=== PATIENT | female | born 1985 | race Caucasian/White ===

== ENCOUNTER 2020-04-14 15:00 | Emergency (ER) | payer OTHER, SELFPAY ==
--- OUTSIDE RECORDS SUMMARY | 2020-04-14 15:27 | XMS REPORT | Continuity of Care Document ---
:1985 Author Organization [facility] t Address [address] [place] [address] Care Team Providers Name Role Phone Unavailable Unavailable Unavailable Payers Payer Name Policy Type Policy Number Effective Date Expiration Date S ource Problems This patient has no known problems. Allergies, Adverse Reactions, Alerts Allergy Allergy Status Severity Reaction(s) Onset Inactive Treating Comm ents Source Name Type Date Date Clinician No Known DA Active [facility] [place] Medications This patient has no known medications. Procedures This patient has no known procedures. Results Test Description Test Time Test Comments Results Result Comments Source RUBELLA SCREEN 2019-09-17 08:23:00 Test Item Value Reference Range Interpretation Comme nts RUBELLA SCREEN (test code = 28.0 IUnit/ml Results >10.0IUnits/ml are considered RUBSC) positive inacco rdance with the CLSI guidelines and based on the WHO International S tandard for Anti-Rubella se rum as anindicator of immune status a nd a breakpoint to detect mostsero positive persons. AG HEPATITIS B [id number] 08:06:00 Test Item Value Reference Range Interpretation Comments AG HEPATITIS B SURFACE (test code NONREACTIVE NONREACTIVE = HBSAG) Comments to Back Panel Padder: [id number] CONSENT FORM SIGNED FOR HIV TESTING? YAB HEPATITIS C [id number] 08:06:00 Test Item Value Reference Range Interpretation Comments AB HEPATITIS C (test code = NONREACTIVE NONREACTIVE HCVAB) SIGNAL TO CUTOFF (test code = 0.14 <0.80 N CUTOFF) Comments to Back Panel Padder: [id number] CONSENT FORM SIGNED FOR HIV TESTING? YAB [id number] 08:06:00 Test Item Value Reference Range Interpretation Comments AB TREPONEMA (test code = TREPAB) NONREACTIVE NONREACTIVE Comments to Back Panel Padder: [id number] CONSENT FORM SIGNED FOR HIV TESTING? YAB HIV 1 08:06:00 Test Item Value Reference Range Interpretation Comments AB HIV 1 2 (test NONREACTIVE NONREACTIVE Done by Venu Lassiter code = [id number]) 4th Gen HIV Ag/Ab Combo Screen Comments to Back Panel Padder: [id number] CONSENT FORM SIGNED FOR HIV TESTING? Y Coronavirus 2019 nCoV [id number] 07:56:00 Test Item Value Reference Range Interpretation Comments Coronavirus 2019 nCoV Negative Negative RESUL TS CALLED TO Bedside (test code = DANAE READ BACK & COVNONPUIBED) CONFIRMED? YES BY [email or web address] 09/06 05/28 0756 This result patel s not rule out co-inf ections with otherpatho gens. * False negative results may occur if a specimen isimproperly co llected, transported or handled. False negativer esults may also occur if amplification i nhibitors arepresent in t he specimen or if inadequate leve ls of virusesare pres ent in the specimen. * As with any molecular t est, if the virus mutat es in thetarget regio n, COVID-19 may no t be detected or may bedetected less predictably.NOELLE T PERFORMED UNDER AN EMERGENCY USE AUTHORIZATION F ROM FDA AG HEPATITIS B [id number] 07:38:00 Test Item Value Reference Range Interpretation Comments AG HEPATITIS B SURFACE (test code NONREACTIVE NONREACTIVE = HBSAG) Comments to Back Panel Padder: [id number] CONSENT FORM SIGNED FOR HIV TESTING? YAB HEPATITIS C [id number] 07:38:00 Test Item Value Reference Range Interpretation Comments AB HEPATITIS C (test code = HCVAB) NONREACTIVE SIGNAL TO CUTOFF (test code = CUTOFF) <0.80 Comments to Back Panel Padder: [id number] CONSENT FORM SIGNED FOR HIV TESTING? YAB [id number] 07:38:00 Test Item Value Reference Range Interpretation Comments AB TREPONEMA (test code = TREPAB) NONREACTIVE NONREACTIVE Comments to Back Panel Padder: [id number] CONSENT FORM SIGNED FOR HIV TESTING? YAB HIV 1 07:38:00 Test Item Value Reference Range Interpretation Comments AB HIV 1 2 (test code = EIY63NN) NONREACTIVE Comments to Back Panel Padder: [id number] CONSENT FORM SIGNED FOR HIV TESTING? YCBC W/AUTO [id number] 06:47:00 Test Item Value Reference Range Interpretation Comments WHITE BLOOD CELL (test code = WBC) 10.6 K/mm3 6.6-12.1 N RED BLOOD CELL (test code = RBC) 3.56 M/mm3 3.45-5.01 N HEMOGLOBIN (test code = HGB) 11.3 g/dL 10.7-13.9 N HEMATOCRIT (test code = HCT) 33.3 % 32.1-42.1 N MEAN CELL VOLUME (test code = MCV) 94 fL 84.1-94.8 N MEAN CELL HGB (test code = MCH) 31.7 pg 27-35 N MEAN CELL HGB CONCETRATION (test 33.9 gm/dL 32.2-34.1 N code = MCHC) RED CELL DISTRIBUTION WIDTH (test 13.1 % 12.4-16.5 N code = RDW) PLATELET COUNT (test code = PLT) 186 K/mm3 133-385 N MEAN PLATELET VOLUME (test code = 11.8 fl 9.1-12.7 N MPV) NEUTROPHIL % (test code = NT%) 75.3 % 56.5-79.4 N LYMPHOCYTE % (test code = LY%) 16.9 % 14.3-34.3 N MONOCYTE % (test code = MO%) 6.1 % 5.1-10.4 N EOSINOPHIL % (test code = EO%) 1.1 % 0.1-3.0 N BASOPHIL % (test code = BA%) 0.1 % 0.1-1.0 N NEUTROPHIL # (test code = NT#) 8.0 K/mm3 LYMPHOCYTE # (test code = LY#) 1.8 K/mm3 MONOCYTE # (test code = MO#) 0.7 K/mm3 EOSINOPHIL # (test code = EO#) 0.12 K/mm3 BASOPHIL # (test code = BA#) 0.0 K/mm3 RBC MORPHOLOGY REQUIRED (test code NORMAL NORMAL = RBCM) PLATELET MORPHOLOGY REQUIRED (test NORMAL NORMAL code = PLTMR)
[2020-04-14 18:06] LABS: Absolute Lymphocytes (CBC) 1.7 K/uL (0.7-4.9); Basophils % 0.3 % (0-1.3); Hematocrit 41.3 % (36.0-45.0); Lymphocytes % 27.7 % (15.3-44.8); MPV 9.7 fL (7.6-11.3); RBC Red Blood Cell Count 4.34 M/uL (3.86-4.86)
[2020-04-14 18:07] LABS: Urine Bacteria NONE SEEN /HPF (<20); Urine Mucus 1+ /HPF (NONE SEEN); Urine RBC <5 /HPF (NONE SEEN)
--- NOTE | 2020-04-14 18:17 | RAD REPORT ---
EXAM DESCRIPTION: Bonifacio Single View04/14/2020 6:11 pm CLINICAL HISTORY: Chest pain COMPARISON: none FINDINGS: The lungs appear clear of acute infiltrate. The heart is normal size IMPRESSION: No acute abnormalities displayed
[2020-04-14 18:26] LABS: ALT/SGPT 26 U/L (12-78); AST/SGOT 15 U/L (15-37); Albumin 4.4 g/dL (3.4-5.0); Alkaline Phosphatase 52 U/L (45-117); BUN Blood Urea Nitrogen 13 mg/dL (7-18); Bicarbonate 27 mmol/L (21-32); Bilirubin Direct < 0.1 mg/dL (0-0.2); Bilirubin Total 0.6 mg/dL (0.2-1.0); Glucose Level 97 mg/dL (74-106); Magnesium 2.2 mg/dL (1.8-2.4); Potassium 3.7 mmol/L (3.5-5.1); Protein, Total 8.5 g/dL (6.4-8.2); Sodium Level 140 mmol/L (136-145); Troponin (Emerg Dept Use Only) < 0.02 ng/mL (0.0-0.045)
[2020-04-14 18:44] LABS: Urine Blood NEGATIVE (NEG); Urine Glucose NEGATIVE (NEG); Urine Protein NEGATIVE (NEG); Urine Specific Gravity 1.015 (1.005-1.030)
--- NOTE | 2020-04-14 20:22 | ER ---
Nurse's Notes [facility] Name: Shelley Saul Age: 34 yrs Sex: Female : 1985 Arrival Date: 04/14/2020 Time: 15:02 Bed 25 Private MD: Diagnosis: Adverse effect of amphetamines-phenteramine Presentation: 04/14 15:04 Chief complaint: EMS states: 1345 at work today, she started getting lightheaded, ca1 palpitations and chest tightness. Attempted to drive to the hospital, she felt she was going to pass out, pulled over and called 911. Initial VS 164/94, HR 105. Last VS 120s/70s, HR 90, 100% RA, NSR on 12L EKG. Coronavirus screen: Client denies travel out of the [place] in the last 14 days. At this time, the client does not indicate any symptoms associated with coronavirus-19. Ebola Screen: Patient negative for fever greater than or equal to 101.5 degrees Fahrenheit, and additional compatible Ebola Virus Disease symptoms Patient denies exposure to infectious person. Patient denies travel to an Ebola-affected area in the 21 days before illness onset. No symptoms or risks identified at this time. Initial Sepsis Screen: Does the patient meet any 2 criteria? No. Patient's initial sepsis screen is negative. Does the patient have a suspected source of infection? No. Patient's initial sepsis screen is negative. Risk Assessment: Do you want to hurt yourself or someone else? Patient reports no desire to harm self or others. Onset of symptoms was April 14, 2020 at 13:45. 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 - Social history:: Smoking status: Patient denies any tobacco usage or history of. Screenin:02 Abuse screen: Denies threats or abuse. Nutritional screening: No deficits noted. jd3 Tuberculosis screening: No symptoms or risk factors identified. Fall Risk Ambulatory Aid- Gait- Normal/Bed Rest/Wheelchair (0 pts) Mental Status- Oriented to own ability (0 pts). Total Hinton Fall Scale indicates No Risk (0-24 pts). Assessment: 18:02 General: Appears in no apparent distress. comfortable, Behavior is calm, cooperative, zb appropriate for age. Pain: Denies pain. Neuro: Level of Consciousness is awake, alert, obeys commands, Oriented to person, place, time, situation. Cardiovascular: Heart tones S1 S2 present Capillary refill < 3 seconds in bilateral fingers Patient's skin is warm and dry. Respiratory: Airway is patent Respiratory effort is even, unlabored, Respiratory pattern is regular, symmetrical. GI: No signs and/or symptoms were reported involving the gastrointestinal system. Abdomen is round non-distended, Bowel sounds present X 4 quads. Patient currently denies diarrhea, nausea, vomiting. : No signs and/or symptoms were reported regarding the genitourinary system. EENT: No signs and/or symptoms were reported regarding the EENT system. Derm: No signs and/or symptoms reported regarding the dermatologic system. Skin is intact, is healthy with good turgor, Skin is dry, Skin is normal. Musculoskeletal: Circulation, motion, and sensation intact. Range of motion: intact in all extremities. 19:00 Reassessment: Patient appears in no apparent distress at this time. Patient and/or zb family updated on plan of care and expected duration. Pain level reassessed. Patient is alert, oriented x 3, equal unlabored respirations, skin warm/dry/pink. Patient states feeling better. 19:50 Reassessment: Patient appears in no apparent distress at this time. Patient and/or zb family updated on plan of care and expected duration. Pain level reassessed. Patient is alert, oriented x 3, equal unlabored respirations, skin warm/dry/pink. Vital Signs: 15:04 BP 130 / 91; Pulse 79; Resp 18 S; Temp 98.2(TE); Pulse Ox 100% on R/A; Weight 88.45 kg ca1 (R); Height 5 ft. 10 in. (177.80 cm) (R); Pain 0/10; 18:03 BP 120 / 83; Pulse 64; Resp 16 S; Pulse Ox 100% on R/A; jd3 19:26 BP 121 / 85 Supine; Pulse 71; Resp 17 S; Pulse Ox 100% on R/A; jd3 19:26 BP 128 / 87 Sitting; Pulse 74; jd3 19:26 BP 120 / 95 Standing; Pulse 88; jd3 19:51 BP 118 / 78; Pulse 66; Resp 16; Pulse Ox 100% on R/A; zb 15:04 Body Mass Index 27.98 (88.45 kg, 177.80 cm) ca1 ED Course: 15:02 Patient arrived in ED. as 15:12 Triage completed. ca1 15:13 Arm band placed on right wrist. ca1 16:39 Karla Mesa FNP-C is PHCP. snw 16:39 Ferny Adair MD is Attending Physician. snw 17:33 Lay Gonzalez RN is Primary Nurse. zb 18:02 Patient has correct armband on for positive identification. Placed in gown. Bed in low jd3 position. Call light in reach. Side rails up X 1. radiation monitor on. Pulse ox on. NIBP on. 18:02 Inserted saline lock: 20 gauge in left antecubital area, using aseptic technique. Blood jd3 collected. placed by Trinity ORELLANA. 20:49 No provider procedures requiring assistance completed. IV discontinued, intact, jd3 bleeding controlled, No redness/swelling at site. Pressure dressing applied. Administered Medications: No medications were administered Outcome: 20:21 Discharge ordered by . snw 20:49 Discharged to home ambulatory. jd3 20:49 Condition: stable 20:49 Discharge instructions given to patient, Instructed on discharge instructions, follow up and referral plans. Demonstrated understanding of instructions, follow-up care. 20:50 Patient left the ED. zb Addendum: 04/16/2020 16:35 Addendum: COVID-19 Result: Negative result given to RN to notify pt. Left voice mail. h b 04/18/2020 10:40 Addendum: COVID-19 Result: Negative result given to RN to notify pt. Attempted to i w contact pt regarding negative COVID-19 swab results. Left voice mail. Signatures: Karla Mesa FNP-C FNP-Marie Landeros Irene, RN RN Ankita Steward, RN RN Angel Ghosh, RN RN jd3 Cristela Cox, RN RN Lay Dumont, RN RN zb
--- NOTE | 2020-04-14 20:22 | EDPHYS ---
Physician Documentation [facility] Name: Shelley Saul Age: 34 yrs Sex: Female : 1985 Arrival Date: 04/14/2020 Time: 15:02 Bed 25 Private MD: ED Physician Ferny Adair HPI: 04/14 21:50 This 34 yrs old Female presents to ER via EMS with complaints of Chest Pain. snw 21:50 Onset: The symptoms/episode began/occurred acutely, and became persistent. Associated snw signs and symptoms: Pertinent positives: palpitations, near syncope, not drinking many fluids. Modifying factors: The patient symptoms are alleviated by nothing. The patient has not experienced similar symptoms in the past. It is unknown whether or not the patient has recently seen a physician. pt has been taking phenteramine. 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 - Social history:: Smoking status: Patient denies any tobacco usage or history of. ROS: 21:49 Eyes: Negative for injury, pain, redness, and discharge, ENT: Negative for injury, snw pain, and discharge, Neck: Negative for injury, pain, and swelling, Cardiovascular: Negative for chest pain, palpitations, and edema, Respiratory: Negative for shortness of breath, cough, wheezing, and pleuritic chest pain, Abdomen/GI: Negative for abdominal pain, nausea, vomiting, diarrhea, and constipation, Back: Negative for injury and pain, : Negative for injury, bleeding, discharge, and swelling, MS/Extremity: Negative for injury and deformity, Skin: Negative for injury, rash, and discoloration. 21:49 Constitutional: Positive for fatigue, malaise, poor PO intake. 21:49 Cardiovascular: Positive for chest pain, palpitations. 21:49 Neuro: Positive for dizziness, near syncope. Exam: 19:03 Constitutional: This is a well developed, well nourished patient who is awake, alert, snw and in no acute distress. Head/Face: Normocephalic, atraumatic. Eyes: Pupils equal round and reactive to light, extra-ocular motions intact. Lids and lashes normal. Conjunctiva and sclera are non-icteric and not injected. Cornea within normal limits. Periorbital areas with no swelling, redness, or edema. ENT: Nares patent. No nasal discharge, no septal abnormalities noted. Tympanic membranes are normal and external auditory canals are clear. Oropharynx with no redness, swelling, or masses, exudates, or evidence of obstruction, uvula midline. Mucous membranes moist. Neck: Trachea midline, no thyromegaly or masses palpated, and no cervical lymphadenopathy. Supple, full range of motion without nuchal rigidity, or vertebral point tenderness. No Meningismus. Chest/axilla: Normal chest wall appearance and motion. Nontender with no deformity. No lesions are appreciated. Cardiovascular: Regular rate and rhythm with a normal S1 and S2. No gallops, murmurs, or rubs. Normal PMI, no JVD. No pulse deficits. Respiratory: Lungs have equal breath sounds bilaterally, clear to auscultation and percussion. No rales, rhonchi or wheezes noted. No increased work of breathing, no retractions or nasal flaring. Abdomen/GI: Soft, non-tender, with normal bowel sounds. No distension or tympany. No guarding or rebound. No evidence of tenderness throughout. Back: No spinal tenderness. No costovertebral tenderness. Full range of motion. Skin: Warm, dry with normal turgor. Normal color with no rashes, no lesions, and no evidence of cellulitis. MS/ Extremity: Pulses equal, no cyanosis. Neurovascular intact. Full, normal range of motion. Neuro: Awake and alert, GCS 15, oriented to person, place, time, and situation. Cranial nerves II-XII grossly intact. Motor strength 5/5 in all extremities. Sensory grossly intact. Cerebellar exam normal. Normal gait. Psych: Awake, alert, with orientation to person, place and time. Behavior, mood, and affect are within normal limits. Vital Signs: 15:04 BP 130 / 91; Pulse 79; Resp 18 S; Temp 98.2(TE); Pulse Ox 100% on R/A; Weight 88.45 kg ca1 (R); Height 5 ft. 10 in. (177.80 cm) (R); Pain 0/10; 18:03 BP 120 / 83; Pulse 64; Resp 16 S; Pulse Ox 100% on R/A; jd3 19:26 BP 121 / 85 Supine; Pulse 71; Resp 17 S; Pulse Ox 100% on R/A; jd3 19:26 BP 128 / 87 Sitting; Pulse 74; jd3 19:26 BP 120 / 95 Standing; Pulse 88; jd3 19:51 BP 118 / 78; Pulse 66; Resp 16; Pulse Ox 100% on R/A; zb 15:04 Body Mass Index 27.98 (88.45 kg, 177.80 cm) ca1 MDM: 17:06 Patient medically screened. snw 19:00 Counseling: I had a detailed discussion with the patient and/or guardian regarding: the snw historical points, exam findings, and any diagnostic results supporting the discharge/admit diagnosis, the need for outpatient follow up, for definitive care, to return to the emergency department if symptoms worsen or persist or if there are any questions or concerns that arise at home. Response to treatment: the patient's symptoms have markedly improved after treatment. Special discussion: Based on the patient's history, exam, and Dx evaluation, there is no indication for emergent intervention or inpatient Tx. It is understood by the patient/guardian that if the Sx's persist or worsen they need to return immediately for re-evaluation. Based on the history and exam findings, there is no indication for further emergent testing or inpatient evaluation. 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 I discussed with the patient/guardian the need to see the primary care provider for further evaluation of the symptoms. ED course: encouraged to dc phenteramine and increase fluid intake. 21:46 Data reviewed: vital signs, nurses notes. Data interpreted: Pulse oximetry: on room air snw is 100 %. Interpretation: normal. 04/14 17:20 Order name: Basic Metabolic Panel snw 04/14 17:20 Order name: CBC with Diff snw 04/14 17:20 Order name: LFT's snw 04/14 17:20 Order name: Magnesium snw 04/14 17:20 Order name: Troponin (emerg Dept Use Only) snw 04/14 17:20 Order name: Test, Serum snw 04/14 17:20 Order name: COVID-19 snw 04/14 17:50 Order name: Urine Microscopic Only jd3 04/14 18:08 Order name: Urine Microscopic Only; Complete Time: 18:37 EDMS 04/14 18:12 Order name: CBC with Automated Diff; Complete Time: 18:37 EDMS 04/14 18:26 Order name: Basic Metabolic Panel; Complete Time: 18:37 EDMS 04/14 18:26 Order name: Liver (Hepatic) Function; Complete Time: 18:37 EDMS 04/14 18:27 Order name: Troponin (Emerg Dept Use Only); Complete Time: 18:37 EDMS 04/14 18:27 Order name: Magnesium; Complete Time: 18:37 EDMS 04/14 17:20 Order name: XRAY Chest (1 view) snw 04/14 17:20 Order name: EKG; Complete Time: 17:25 snw 04/14 17:20 Order name: Cardiac monitoring; Complete Time: 17:33 snw 04/14 17:20 Order name: EKG - Nurse/Tech; Complete Time: 17:33 snw 04/14 17:20 Order name: IV Saline Lock; Complete Time: 18:02 snw 04/14 17:20 Order name: Labs collected and sent; Complete Time: 18:02 snw 04/14 17:20 Order name: O2 Per Protocol; Complete Time: 17:30 snw 04/14 17:20 Order name: O2 Sat Monitoring; Complete Time: 17:30 snw 04/14 18:22 Order name: RAD; Complete Time: 18:37 EDMS 04/14 18:27 Order name: Urine Dipstick--Ancillary (enter results) bd 04/14 18:27 Order name: Urine --Ancillary (enter results) bd 04/14 18:43 Order name: Test Serum, Qualitat; Complete Time: 18:48 EDMS 04/14 18:44 Order name: Urine --Ancillary; Complete Time: 18:48 EDMS 04/14 18:44 Order name: Urine Dipstick-Ancillary; Complete Time: 18:48 EDMS 04/14 18:48 Order name: Orthostatics; Complete Time: 19:15 snw Administered Medications: No medications were administered Disposition: 04/14/20 20:21 Discharged to Home. Impression: Adverse effect of amphetamines - phenteramine. - Condition is Stable. - Discharge Instructions: Palpitations, Rehydration, Adult. - Work release form, Medication Reconciliation Form, Thank You Letter, Antibiotic Education, Prescription Opioid Use form. - Follow up: Emergency Department; When: As needed; Reason: Worsening of condition. Follow up: Private Physician; When: 2 - 3 days; Reason: Recheck today's complaints, Continuance of care, Re-evaluation by your physician. Addendum: 04/16/2020 19:44 Co-signature as Attending Physician, Ferny Adair MD. r n Signatures: Dispatcher [employer] EDMS Karla Mesa, CONSTRUCTION IRONWORKER HELPER-C CONSTRUCTION IRONWORKER HELPER-Csnw Ferny Adair MD MD rn Brooke, Cristela, RN RN Lay Dumont RN RN jackson Corrections: (The following items were deleted from the chart) 04/14 20:50 20:21 04/14/2020 20:21 Discharged to Home. Impression: Adverse effect of amphetamines - zb phenteramine. Condition is Stable. Forms are Medication Reconciliation Form, Thank You Letter, Antibiotic Education, Prescription Opioid Use. Follow up: Emergency Department; When: As needed; Reason: Worsening of condition. Follow up: Private Physician; When: 2 - 3 days; Reason: Recheck today's complaints, Continuance of care, Re-evaluation by your physician. snw 21:50 19:04 Constitutional: Positive for snw snw
--- NOTE | 2020-04-15 11:56 | EKG ---
Test Date: 2020-04-14 Test Time: 17:37:20 Color Maker Formulator: CITLALLI MEASUREMENT RESULTS: Intervals: Rate: 70 IN: 146 QRSD: 90 QT: 408 QTc: 440 [place]: P: 70 IN: 146 QRS: 78 T: 58 INTERPRETIVE STATEMENTS: Normal sinus rhythm Nonspecific T wave abnormality Abnormal ECG No previous ECG available for comparison Electronically Signed On 04-15-20 11:52:25 AUTOMOTIVE TEACHER by Bennett Quach
[2020-04-18 02:13] VITALS: TEMP 98.2; O2SAT 100
[2020-04-18 02:18] VITALS: BP 118/78
== END 2020-04-14 20:50 | disposition home or self-care (01) ==
LOC: ER 15:00
DX: R07.9 Chest pain, unspecified (principal); T50.5X5A Adverse effect of appetite depressants, initial encounter; Z20.828 Contact with and (suspected) exposure to other viral communicable diseases
CPT/HCPCS: 36415; 71045; 80048; 80076; 81003; 81015; 81025; 83735; 84484; 84703; 85025; 93005; 99284; U0002

== ENCOUNTER 2021-08-02 07:33 | Emergency (ER) | payer BC ==
--- OUTSIDE RECORDS SUMMARY | 2021-08-02 07:39 | XMS REPORT | Continuity of Care Document ---
:1985 Author Organization [facility] t Address [address] [place] [address] Care Team Providers Name Role Phone Emory Attending Clinician Unavailable Emory Admitting Clinician Unavailable Payers Payer Name Policy Type Policy Number Effective Date Expiration Date S ource Problems This patient has no known problems. Allergies, Adverse Reactions, Alerts Allergy Allergy Status Severity Reaction(s) Onset Inactive Treating Comm ents Source Name Type Date Date Clinician No Known DA Active U 2020-0 [facility] Allergie 09-13 [facility] [address] [place] [address] No Known DA Active U 2019-0 [facility] Allergie 09-13 [facility]'s s 00:00: [address] Medications This patient has no known medications. Procedures Procedure Date / Time Performed Performing Clinician [facility] e [id number] 2019-09-17 00:00:00 [facility] [id number] 2019-09-17 00:00:00 [facility] [id number] 2019-09-17 00:00:00 [facility] Encounters Start End Encounter Admission Attending Care Care Encounter Source Date/Time Date/Time Type Type Clinicians Facility Department ID 2021-02-19 Outpatient [facility] [id number] [facility] 18:54:50 [id number] [facility] 2019-09-17 Inpatient EM ACL Cat [id number] [facility] 04:31:00 Juan [id number] [facility] 2019-09-14 Inpatient CAL Cat LEROY [id number] [facility] 19:29:00 Juan [id number] [facility] Results Test Description Test Time Test Comments [...] a breakpoint to detect mostsero positive persons. AB [id number] 08:06:00 Test Item Value Reference Range Interpretation Comments AB TREPONEMA (test code = TREPAB) NONREACTIVE NONREACTIVE Comments to Attending Physician: [id number] CONSENT FORM SIGNED FOR HIV TESTING? YAB HIV 1 08:06:00 Test Item Value Reference Range Interpretation Comments AB HIV 1 2 (test NONREACTIVE NONREACTIVE Done by Venu Lassiter code = [id number]) 4th Gen HIV Ag/Ab Combo Screen Comments to Attending Physician: [id number] CONSENT FORM SIGNED FOR HIV TESTING? YAG HEPATITIS B [id number] 08:06:00 Test Item Value Reference Range Interpretation Comments AG HEPATITIS B SURFACE (test code NONREACTIVE NONREACTIVE = HBSAG) Comments to Attending Physician: [id number] CONSENT FORM SIGNED FOR HIV TESTING? YAB HEPATITIS C [id number] 08:06:00 Test Item Value Reference Range Interpretation Comments AB HEPATITIS C (test code = NONREACTIVE NONREACTIVE HCVAB) SIGNAL TO CUTOFF (test code = 0.14 <0.80 N CUTOFF) Comments to Attending Physician: [id number] CONSENT FORM SIGNED FOR HIV TESTING? Y Coronavirus 2019 nCoV [id number] 07:56:00 Test Item Value Reference Range Interpretation Comments Coronavirus 2019 nCoV Negative Negative RESUL TS CALLED TO Bedside (test code = DANAE READ BACK & COVNONPUIBED) CONFIRMED? YES BY [email or web address] 09/06 05/28 [id number] This result patel s not rule out [...] AUTHORIZATION F ROM FDA AG HEPATITIS B [id number] 07:38:00 Test Item Value Reference Range Interpretation Comments AG HEPATITIS B SURFACE (test code NONREACTIVE NONREACTIVE = HBSAG) Comments to Attending Physician: [id number] CONSENT FORM SIGNED FOR HIV TESTING? YAB HEPATITIS C [id number] 07:38:00 Test Item Value Reference Range Interpretation Comments AB HEPATITIS C (test code = HCVAB) NONREACTIVE SIGNAL TO CUTOFF (test code = CUTOFF) <0.80 Comments to Attending Physician: [id number] CONSENT FORM SIGNED FOR HIV TESTING? YAB [id number] 07:38:00 Test Item Value Reference Range Interpretation Comments AB TREPONEMA (test code = TREPAB) NONREACTIVE NONREACTIVE Comments to Attending Physician: [id number] CONSENT FORM SIGNED FOR HIV TESTING? YAB HIV 1 07:38:00 Test Item Value Reference Range Interpretation Comments AB HIV 1 2 (test code = CRF05DT) NONREACTIVE Comments to Attending Physician: [id number] CONSENT FORM SIGNED FOR HIV TESTING? YCBC W/AUTO [id number] 06:47:00 Test Item Value Reference Range Interpretation [...]
[2021-08-02 08:00] LABS: Urine Blood 2+ (Negative); Urine Glucose Negative (Negative); Urine Protein 2+ (Negative); Urine Specific Gravity 1.025 (1.005-1.030)
[2021-08-02 08:07] LABS: Urine Specific Gravity/Preg 1.025 (1.005-1.030)
[2021-08-02] MEDS ORDERED: KETOROLAC 30 MG/ML INJ ONE (08:07)
[2021-08-02] MEDS ORDERED: ONDANSETRON 4 MG/2 ML VIAL ONE (08:07)
[2021-08-02] MEDS ORDERED: CEFTRIAXONE 1000 MG/VIAL ONE (08:07)
[2021-08-02] MEDS ORDERED: NA CHLORIDE 0.9% 50 ML ONE (08:07)
[2021-08-02] MEDS ORDERED: NA CHLORIDE 0.9% 1,000 ML ONE (08:07)
--- NOTE | 2021-08-02 08:21 | RAD REPORT ---
[facility] Protocol - 08/02/2021 8:05 am CLINICAL HISTORY: FLANK PAIN COMPARISON: No comparisons TECHNIQUE: CT of the abdomen and pelvis was performed. All CT scans are performed using dose optimization technique as appropriate and may include automated exposure control or mA/KV adjustment according to patient size. FINDINGS: Lower chest: Small focus of micro nodularity in the right lower lobe of doubtful acute cli nical significance. Liver: No acute abnormality or suspicious lesions. Biliary: No biliary ductal dilatation. Stomach: No significant focal abnormality. Duodenum: No significant focal abnormality. Pancreas: No significant abnormality. Spleen: No significant abnormality. Adrenal: No suspicious lesions. Kidney/ureter: No hydronephrosis. No renal calculi. Retroperitoneum: No retroperitoneal adenopathy. Vascular: No aneurysm. Bowel: No significant focal abnormality. Normal appendix. Peritoneum: No ascites or free air. Bladder: Grossly unremarkable. Reproductive: No adnexal masses. Bones: No acute fracture. Probable bone islands in the right iliac bone. Other: n/a IMPRESSION: No acute intra-abdominal or pelvic finding. No urinary tract calculi. Normal appendix.
[2021-08-02 08:33] LABS: Absolute Lymphocytes (CBC) 1.5 K/uL (0.7-4.9); Hematocrit 42.2 % (36.0-45.0); Lymphocytes % 21.8 % (15.3-44.8); MPV 8.8 fL (7.6-11.3); RBC Red Blood Cell Count 4.32 M/uL (3.86-4.86)
[2021-08-02 08:37] LABS: ALT/SGPT 34 U/L (12-78); AST/SGOT 33 U/L (15-37); Albumin 3.7 g/dL (3.4-5.0); Alkaline Phosphatase 58 U/L (45-117); BUN Blood Urea Nitrogen 10 mg/dL (7-18); Bicarbonate 29 mmol/L (21-32); Bilirubin Total 0.3 mg/dL (0.2-1.0); Glucose Level 110 mg/dL (74-106); Potassium 4.2 mmol/L (3.5-5.1); Protein, Total 7.5 g/dL (6.4-8.2); Sodium Level 140 mmol/L (136-145)
[2021-08-02] MEDS ORDERED: CIPROFLOXACIN HCL 500 MG TAB ONE (08:51)
--- NOTE | 2021-08-02 09:09 | EDPHYS ---
Physician Documentation [facility] Name: Shelley Saul Age: 35 yrs Sex: Female : 1985 Arrival Date: 08/02/2021 Time: 07:38 Bed 19 Private MD: ED Physician J Luis Ohara HPI: 08/02 08:17 This 35 yrs old Female presents to ER via Ambulatory with complaints of Back melba Pain, Urinary Problem. 08:17 The patient presents with pain that is acute. The symptoms are located in the low back, melba left mid back and right mid back. Onset: The symptoms/episode began/occurred 3 day(s) ago. The pain does not radiate. Associated signs and symptoms: Pertinent positives: abdominal pain, dysuria, fever. The problem was sustained from unknown cause. Severity of symptoms: At their worst the symptoms were mild, in the emergency department the symptoms are unchanged. The patient has not experienced similar symptoms in the past. [employer]: 07:54 LMP 07/07/2021 iw Historical: - Allergies: 07:52 No Known Allergies; iw - Home Meds: 07:52 None [Active]; iw - PMHx: 07:52 None; iw - PSHx: 07:52 None; iw - Social history:: Smoking status: Patient/guardian denies using tobacco, the patient reports quitting approximately 3 years ago. - Family history:: not pertinent. ROS: 08:17 Constitutional: Negative for fever, chills, and weight loss, Eyes: Negative for injury, melba pain, redness, and discharge, ENT: Negative for injury, pain, and discharge, Neck: Negative for injury, pain, and swelling, Cardiovascular: Negative for chest pain, palpitations, and edema, Respiratory: Negative for shortness of breath, cough, wheezing, and pleuritic chest pain, MS/Extremity: Negative for injury and deformity, Skin: Negative for injury, rash, and discoloration, Neuro: Negative for headache, weakness, numbness, tingling, and seizure, Psych: Negative for depression, anxiety, suicide ideation, homicidal ideation, and hallucinations, Allergy/Immunology: Negative for hives, rash, and allergies, Endocrine: Negative for neck swelling, polydipsia, polyuria, polyphagia, and marked weight changes, Hematologic/Lymphatic: Negative for swollen nodes, abnormal bleeding, and unusual bruising. 08:17 Abdomen/GI: Positive for abdominal pain, abdominal cramps. 08:17 Back: Positive for flank pain, bilaterally. Exam: 08:17 Constitutional: This is a well developed, well nourished patient who is awake, alert, melba and in no acute distress. Head/Face: Normocephalic, atraumatic. Eyes: Pupils equal round and reactive to light, extra-ocular motions intact. Lids and lashes normal. Conjunctiva and sclera are non-icteric and not injected. Cornea within normal limits. Periorbital areas with no swelling, redness, or edema. ENT: Nares patent. No nasal discharge, no septal abnormalities noted. Tympanic membranes are normal and external auditory canals are clear. Oropharynx with no redness, swelling, or masses, exudates, or evidence of obstruction, uvula midline. Mucous membranes moist. Neck: Trachea midline, no thyromegaly or masses palpated, and no cervical lymphadenopathy. Supple, full range of motion without nuchal rigidity, or vertebral point tenderness. No Meningismus. Chest/axilla: Normal chest wall appearance and motion. Nontender with no deformity. No lesions are appreciated. Cardiovascular: Regular rate and rhythm with a normal S1 and S2. No gallops, murmurs, or rubs. Normal PMI, no JVD. No pulse deficits. Respiratory: Lungs have equal breath sounds bilaterally, clear to auscultation and percussion. No rales, rhonchi or wheezes noted. No increased work of breathing, no retractions or nasal flaring. Skin: Warm, dry with normal turgor. Normal color with no rashes, no lesions, and no evidence of cellulitis. MS/ Extremity: Pulses equal, no cyanosis. Neurovascular intact. Full, normal range of motion. Neuro: Awake and alert, GCS 15, oriented to person, place, time, and situation. Cranial nerves II-XII grossly intact. Motor strength 5/5 in all extremities. Sensory grossly intact. Cerebellar exam normal. Normal gait. Psych: Awake, alert, with orientation to person, place and time. Behavior, mood, and affect are within normal limits. 08:17 Abdomen/GI: Inspection: abdomen appears normal, Bowel sounds: normal, Palpation: mild abdominal tenderness, in the suprapubic area and left lower quadrant, Liver: no appreciated palpable abnormalities, Hernia: not appreciated. Vital Signs: 07:54 BP 125 / 89; Pulse 72; Resp 16 S; Temp 98.8; Weight 90.72 kg; Height 5 ft. 10 in. iw (177.80 cm); Pain 8/10; 08:44 BP 117 / 73; Pulse 73; Resp 16 S; Pulse Ox 98% on R/A; jd3 07:54 Body Mass Index 28.70 (90.72 kg, 177.80 cm) iw MDM: 07:50 Patient medically screened. [facility] 08:22 Differential diagnosis: Pyelonephritis Renal Infarction Ureterolithiasis. Data [facility] reviewed: vital signs, nurses notes, lab test result(s), radiologic studies, CT scan. Data interpreted: youth nutritional monitor: rate is 72 beats/min, rhythm is regular, Pulse oximetry: on room air is 98 %. Counseling: I had a detailed discussion with the patient and/or guardian regarding: the historical points, exam findings, and any diagnostic results supporting the discharge/admit diagnosis, lab results, radiology results, the need for outpatient follow up, for definitive care, a family practitioner. 08/02 07:52 Order name: CBC with Diff; Complete Time: 09:03 melba 08/02 07:52 Order name: Comprehensive Metabolic Panel; Complete Time: 09:03 melba 08/02 07:52 Order name: Urine Culture [facility] 08/02 07:52 Order name: CT Stone Protocol; Complete Time: 08:24 melba 08/02 08:00 Order name: Urine --Ancillary (enter results); Complete Time: 08:24 eb 08/02 08:00 Order name: Urine Dipstick-Ancillary; Complete Time: 08:24 EDCA 08/02 07:51 Order name: Urine Dipstick-Ancillary (obtain specimen); Complete Time: 08:01 jd3 08/02 07:51 Order name: Urine Test (obtain specimen); Complete Time: 08:01 jd3 08/02 07:52 Order name: Urine Dipstick-Ancillary (obtain specimen); Complete Time: 08:01 [facility] Administered Medications: 08:23 Drug: NS 0.9% 1000 ml Route: IV; Rate: 1 bolus; Site: right antecubital; jd3 09:19 Follow up: Response: No adverse reaction; IV Status: Completed infusion jd3 08:23 Drug: Rocephin (cefTRIAXone) 1 grams Route: IV; Rate: per protocol; Site: right jd3 antecubital; 08:51 Follow up: Response: No adverse reaction; IV Status: Completed infusion jd3 08:24 Drug: Ketorolac 30 mg Route: IVP; Site: right antecubital; jd3 08:51 Follow up: Response: No adverse reaction jd3 08:24 Drug: Zofran (Ondansetron) 4 mg Route: IVP; Site: right antecubital; jd3 08:51 Follow up: Response: No adverse reaction jd3 08:51 Drug: Cipro (ciprofloxacin) 500 mg Route: PO; jd3 09:19 Follow up: Response: No adverse reaction jd3 Disposition Summary: 08/02/21 09:08 Discharge Ordered Location: Home melba Problem: new melba Symptoms: have improved melba Condition: Stable melba Diagnosis - Dysuria melba - UTI/ Urinary tract infection, site not specified melba - Abdominal tenderness melba Followup: melba - With: Private Physician - When: 2 - 3 days - Reason: Recheck today's complaints, Continuance of care, Re-evaluation by your physician Discharge Instructions: - Discharge Summary Sheet melba - Abdominal Pain, Adult melba - Urinary Tract Infection, Adult melba - Urinary Tract Infection, Adult, [id number] melba - Abdominal Pain, Adult, [id number] melba Forms: - Medication Reconciliation Form [facility] - Thank You Letter melba - Antibiotic Education melba - Prescription Opioid Use [facility] Prescriptions: - Cipro 500 mg Oral Tablet - take 1 tablet by ORAL route every 12 hours for 7 days; 14 tablet; Refills: 0, [facility] Product Selection Permitted - Bactrim DS 800-160 mg Oral Tablet - take 1 tablet by ORAL route every 12 hours for 3 days; 6 tablet; Refills: 0, [facility] Product Selection Permitted Signatures: Dispatcher [employer] J Luis Weston MD MD cha Williams, Irene, RN Angel Mora RN RN jd3
--- NOTE | 2021-08-02 09:09 | ER ---
Nurse's Notes [facility] Name: Shelley Saul Age: 35 yrs Sex: Female : 1985 Arrival Date: 08/02/2021 Time: 07:38 Bed 19 Private MD: Diagnosis: Dysuria;UTI/ Urinary tract infection, site not specified;Abdominal tenderness Presentation: 08/02 07:49 Chief complaint: Patient states: pain with urination and blood in her urine, felt like iw a UTI, was taking AZO's but now she has low back pain across both sides and suprapubic pain. Coronavirus screen: At this time, the client does not indicate any symptoms associated with coronavirus-19. Ebola Screen: Patient negative for fever greater than or equal to 101.5 degrees Fahrenheit, and additional compatible Ebola Virus Disease symptoms Patient denies exposure to infectious person. Patient denies travel to an Ebola-affected area in the 21 days before illness onset. No symptoms or risks identified at this time. Initial Sepsis Screen: Does the patient meet any 2 criteria? No. Patient's initial sepsis screen is negative. Does the patient have a suspected source of infection? No. Patient's initial sepsis screen is negative. Risk Assessment: Do you want to hurt yourself or someone else? Patient reports no desire to harm self or others. 07:49 Method Of Arrival: Ambulatory iw 07:49 Acuity: TEVIN 3 iw 08:26 Onset of symptoms was August 02, 2021. 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 - Family history:: not pertinent. Screenin:26 Abuse screen: Denies threats or abuse. Nutritional screening: No deficits noted. jd3 Tuberculosis screening: No symptoms or risk factors identified. Fall Risk IV access (20 points). Gait- Normal/Bed Rest/Wheelchair (0 pts) Mental Status- Oriented to own ability (0 pts). Total Hinton Fall Scale indicates No Risk (0-24 pts). Assessment: 08:25 General: Appears in no apparent distress. comfortable, Behavior is calm, cooperative, jd3 appropriate for age. Pain: Complains of pain in low back area and abdomen Quality of pain is described as aching. Neuro: Level of Consciousness is awake, alert, obeys commands, Oriented to person, place, time, situation. Cardiovascular: Denies chest pain, Capillary refill < 3 seconds Patient's skin is warm and dry. Respiratory: Airway is patent Respiratory effort is even, unlabored, Respiratory pattern is regular, symmetrical, Denies cough, shortness of breath. GI: Abdomen is non-distended, Abd is soft and non tender X 4 quads. Patient currently denies constipation, diarrhea, nausea, vomiting. : Reports burning with urination, urgency. EENT: No signs and/or symptoms were reported regarding the EENT system. Derm: Skin is intact, Skin is dry, Skin is normal, Skin temperature is warm. Musculoskeletal: Circulation, motion, and sensation intact. Range of motion:. 08:44 Reassessment: Patient appears in no apparent distress at this time. Patient and/or jd3 family updated on plan of care and expected duration. Pain level reassessed. Patient is alert, oriented x 3, equal unlabored respirations, skin warm/dry/pink. Patient states feeling better. Patient states symptoms have improved. 09:19 Reassessment: Patient appears in no apparent distress at this time. Patient and/or jd3 family updated on plan of care and expected duration. Pain level reassessed. Patient is alert, oriented x 3, equal unlabored respirations, skin warm/dry/pink. Patient states feeling better. Vital Signs: 07:54 BP 125 / 89; Pulse 72; Resp 16 S; Temp 98.8; Weight 90.72 kg; Height 5 ft. 10 in. iw (177.80 cm); Pain 8/10; 08:44 BP 117 / 73; Pulse 73; Resp 16 S; Pulse Ox 98% on R/A; jd3 07:54 Body Mass Index 28.70 (90.72 kg, 177.80 cm) ED Course: 07:38 Patient arrived in ED. mr 07:45 Angel Caba RN is Primary Nurse. jd3 07:50 J Luis Ohara MD is Attending Physician. melba 07:52 Triage completed. iw 07:53 Arm band placed on. iw 08:01 Urine Culture Sent. jd3 08:07 CT Stone Protocol In Process Unspecified. EDMS 08:15 Inserted saline lock: 20 gauge in right antecubital area, using aseptic technique. jd3 Blood collected. placed by DI sorter/assay tech. 08:26 Patient has correct armband on for positive identification. Bed in low position. Call jd3 light in reach. Side rails up X 1. Pulse ox on. NIBP on. 09:18 No provider procedures requiring assistance completed. IV discontinued, intact, jd3 bleeding controlled, No redness/swelling at site. Pressure dressing applied. Administered Medications: 08:23 Drug: NS 0.9% 1000 ml Route: IV; Rate: 1 bolus; Site: right antecubital; jd3 09:19 Follow up: Response: No adverse reaction; IV Status: Completed infusion jd3 08:23 Drug: Rocephin (cefTRIAXone) 1 grams Route: IV; Rate: per protocol; Site: right jd3 antecubital; 08:51 Follow up: Response: No adverse reaction; IV Status: Completed infusion jd3 08:24 Drug: Ketorolac 30 mg Route: IVP; Site: right antecubital; jd3 08:51 Follow up: Response: No adverse reaction jd3 08:24 Drug: Zofran (Ondansetron) 4 mg Route: IVP; Site: right antecubital; jd3 08:51 Follow up: Response: No adverse reaction jd3 08:51 Drug: Cipro (ciprofloxacin) 500 mg Route: PO; jd3 09:19 Follow up: Response: No adverse reaction jd3 Outcome: 09:08 Discharge ordered by MD. reilly 09:18 Discharged to home ambulatory. jd3 09:18 Condition: stable 09:18 Discharge instructions given to patient, Instructed on discharge instructions, follow up and referral plans. medication usage, Demonstrated understanding of instructions, follow-up care, medications, Prescriptions given X 2. 09:19 Patient left the ED. jd3 Addendum: 08/04/2021 11:20 Addendum: Culture Results: Positive urine culture. No further action required. Bacteria s s sensitive to prescribed antibiotic. Signatures: Dispatcher [employer] EDPA J Luis Ohara MD MD cha Rivera, Polly mr Olga Schofield, Rachna Avila RN, RN RN Angel Caba RN RN jd3 Corrections: (The following items were deleted from the chart) 08/02 07:56 07:54 Temp 98.8F; 90.72 kg; Height 5 ft. 10 in.; BMI: 28.7; Pain 12/16; iw iw 08:51 08:44 Reassessment: Patient appears in no apparent distress at this time. No changes jd3 from previously documented assessment. Patient and/or family updated on plan of care and expected duration. Pain level reassessed. Patient is alert, oriented x 3, equal unlabored respirations, skin warm/dry/pink. jd3
[2021-08-02 09:26] VITALS: TEMP 98.8
[2021-08-02 09:27] VITALS: BP 117/73; O2SAT 98
== END 2021-08-02 09:19 | disposition home or self-care (01) ==
LOC: ER 07:33
DX: N39.0 Urinary tract infection, site not specified (principal); R10.819 Abdominal tenderness, unspecified site
CPT/HCPCS: 96365; 87088; 85025; 87086; 36415; 81025; 87077; 87186; 81003; 80053; 76377; 74176; 96375; 99284; J7030; J2405

== ENCOUNTER 2021-12-31 14:36 | Emergency (ER) | payer BC ==
--- OUTSIDE RECORDS SUMMARY | 2021-12-31 14:38 | XMS REPORT | Continuity of Care Document ---
:1985 Author Organization [facility] t Address [address] [place] [address] Care Team Providers Name Role Phone Juan Cat Attending Clinician Unavailable Juan Cat Admitting Clinician Unavailable Payers Payer Name Policy Type Policy Number Effective Date Expiration Date S ource Problems This patient has no known problems. Allergies, Adverse Reactions, Alerts Allergy Allergy Status Severity Reaction(s) Onset Inactive Treating Comm ents Source Name Type Date Date Clinician No Known DA Active U 2020-0 [facility] No Known DA Active U 2020-0 [facility] Allergie 09-13 [facility] 00:00: [address] Medications This patient has no known medications. Procedures Procedure Date / Time Performed Performing Clinician [facility] e [id number] 2019-09-17 00:00:00 [facility] [id number] 2019-09-17 00:00:00 [facility] [id number] 2019-09-17 00:00:00 [facility] Encounters Start End Encounter Admission Attending Care Care Encounter Source Date/Time Date/Time Type Type Clinicians Facility Department ID 2021-02-19 Outpatient [facility] [id number] [facility] 18:54:50 [id number] [facility] 2019-09-17 [facility] [id number] [facility] 04:31:00 Juan [id number] [facility] 2019-09-14 Inpatient [facility] LEROY [id number] [facility] 19:29:00 Juan [facility] Results Test Description Test Time Test Comments [...] breakpoint to detect mostsero positive persons. AB [id number] 08:06:00 Test Item Value Reference Range Interpretation Comments AB TREPONEMA (test code = TREPAB) NONREACTIVE NONREACTIVE Comments to Nursing Technician: [id number] CONSENT FORM SIGNED FOR HIV TESTING? YAB HIV 1 08:06:00 Test Item Value Reference Range Interpretation Comments AB HIV 1 2 (test NONREACTIVE NONREACTIVE [facility] code = [id number]) 4th Gen HIV Ag/Ab Combo Screen Comments to Nursing Technician: [id number] CONSENT FORM SIGNED FOR HIV TESTING? YAG HEPATITIS B [id number] 08:06:00 Test Item Value Reference Range Interpretation Comments AG HEPATITIS B SURFACE (test code NONREACTIVE NONREACTIVE = HBSAG) Comments to Nursing Technician: [id number] CONSENT FORM SIGNED FOR HIV TESTING? YAB HEPATITIS C [id number] 08:06:00 Test Item Value Reference Range Interpretation Comments AB HEPATITIS C (test code = NONREACTIVE NONREACTIVE HCVAB) SIGNAL TO CUTOFF (test code = 0.14 <0.80 N CUTOFF) Comments to Nursing Technician: [id number] CONSENT FORM SIGNED FOR HIV TESTING? Y Coronavirus 2019 nCoV [id number] 07:56:00 Test Item Value Reference Range Interpretation [...] AUTHORIZATION F ROM FDA AG HEPATITIS B [id number] 07:38:00 Test Item Value Reference Range Interpretation Comments AG HEPATITIS B SURFACE (test code NONREACTIVE NONREACTIVE = HBSAG) Comments to Nursing Technician: [id number] CONSENT FORM SIGNED FOR HIV TESTING? YAB HEPATITIS C [id number] 07:38:00 Test Item Value Reference Range Interpretation Comments AB HEPATITIS C (test code = HCVAB) NONREACTIVE SIGNAL TO CUTOFF (test code = CUTOFF) <0.80 Comments to Nursing Technician: [id number] CONSENT FORM SIGNED FOR HIV TESTING? YAB [id number] 07:38:00 Test Item Value Reference Range Interpretation Comments AB TREPONEMA (test code = TREPAB) NONREACTIVE NONREACTIVE Comments to Nursing Technician: [id number] CONSENT FORM SIGNED FOR HIV TESTING? YAB HIV 1 07:38:00 Test Item Value Reference Range Interpretation Comments AB HIV 1 2 (test code = LGR22DG) NONREACTIVE Comments to Nursing Technician: [id number] CONSENT FORM SIGNED FOR HIV TESTING? YCBC W/AUTO [id number] 06:47:00 Test Item Value Reference Range Interpretation [...]
[2021-12-31] MEDS ORDERED: TETRACAINE HCL 0.5% 4ML OPTH ONE (16:00)
[2021-12-31] MEDS ORDERED: FLUORESCEIN SODIUM 1 MG/WRAP ONE (16:00)
--- NOTE | 2021-12-31 16:26 | ER ---
Nurse's Notes [facility] Name: Shelley Saul Age: 36 yrs Sex: Female : 1985 Arrival Date: 12/31/2021 Time: 14:37 Bed 6 Private MD: Diagnosis: Other acute conjunctivitis-chemical, bilateral Presentation: 12/31 15:00 Chief complaint: Patient states: "I opened a can of paint thinner and a little bit ss splashed in both my eyes." Pt reports that she rinsed both eyes for approximately 10-15 minutes prior to coming to the ER.". Coronavirus screen: Client denies travel out of the [place] in the last 14 days. Ebola Screen: Patient denies exposure to infectious person. Patient denies travel to an Ebola-affected area in the 21 days before illness onset. Initial Sepsis Screen: Does the patient meet any 2 criteria? No. Patient's initial sepsis screen is negative. Does the patient have a suspected source of infection? No. Patient's initial sepsis screen is negative. Risk Assessment: Do you want to hurt yourself or someone else? Patient reports no desire to harm self or others. Onset of symptoms was December 31, 2021. 15:00 Method Of Arrival: Ambulatory ss 15:00 Acuity: TEVIN 2 ss Triage Assessment: 16:58 General: Appears in no apparent distress. comfortable, Behavior is calm, cooperative, eh3 appropriate for age. Pain: Denies pain. 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 - Social history:: Smoking status: Patient denies any tobacco usage or history of. Screenin:57 Abuse screen: Denies threats or abuse. Denies injuries from another. Nutritional eh3 screening: No deficits noted. Tuberculosis screening: No symptoms or risk factors identified. Fall Risk None identified. Assessment: 15:04 Reassessment: poison control notified, Case # [id number]. Vital Signs: 15:06 Pulse 67; Resp 15; Temp 97.7(TE); Pulse Ox 100% on R/A; Weight 90.72 kg; Height 5 ft. ss 10 in. (177.80 cm); Pain 1/10; 15:06 BP 129 / 93; ss 15:06 Body Mass Index 28.70 (90.72 kg, 177.80 cm) Visual Acuity: 15:56 Left Eye Visual acuity 20/200, Pupil size 5 mm, Normal, React To Light, Reactive To ld1 Accomodation; Right Eye Visual acuity 20/100, Pupil size 5 mm, Normal, React To Light, Reactive To Accomodation; Without Lenses; ED Course: 14:37 Patient arrived in ED. as 14:46 J Luis Chan PA is PHCP. cp 14:46 Joshua Jonas DO is Attending Physician. cp 15:02 Triage completed. ss 15:02 Arm band placed on right wrist. ss 15:47 Deborah Reyes, RN is Primary Nurse. eh3 16:22 Hay Barroso MD is Referral Physician. cp 16:57 Patient has correct armband on for positive identification. Bed in low position. Call eh3 light in reach. Side rails up X 1. 16:57 No provider procedures requiring assistance completed. Patient did not have IV access eh3 during this emergency room visit. Administered Medications: 16:30 Drug: Tetracaine Drops 0.5 % 1 drops Route: Ophthalmic; Site: both eyes; eh3 Medication: 16:59 VIS not applicable for this client. eh3 Outcome: 16:25 Discharge ordered by . cp 16:57 Discharged to home ambulatory. eh3 16:57 Condition: stable 16:57 Discharge instructions given to patient, Instructed on discharge instructions, follow up and referral plans. Demonstrated understanding of instructions, follow-up care. 17:04 Patient left the ED. ld1 Signatures: Marie Trinh Shelby, RN RN J Luis Chan PA PA cp Enedina Hernandez RN RN ld1 Deborah Reyes, REYNA RN eh3
--- NOTE | 2021-12-31 16:26 | EDPHYS ---
Physician Documentation [facility] Name: Shelley Saul Age: 36 yrs Sex: Female : 1985 Arrival Date: 12/31/2021 Time: 14:37 Bed 6 Private MD: ED Physician Joshua Jonas HPI: 12/31 15:01 This 36 yrs old Female presents to ER via Unassigned with complaints of Chemical cp Exposure In Eye - paint thinner. 15:01 The patient sustained a splash, to both eyes, caused by paint thinner. Onset: The cp symptoms/episode began/occurred 40 minute(s) ago. 15:01 Associated signs and symptoms: Pertinent negatives: chills, dizziness, fever. cp 15:01 Patient wears glasses, wears soft contacts, patient reports she was wearing contact cp lenses when incident occurred. Removed lenses and rinsed eyes out for 10-15 minutes. 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 - Social history:: Smoking status: Patient denies any tobacco usage or history of. ROS: 15:05 Constitutional: Negative for body aches, chills, fever, poor PO intake. cp 15:05 Eyes: Positive for redness, of the left eye, Negative for pain. cp 15:05 ENT: Negative for drainage from ear(s), ear pain, sore throat, difficulty swallowing, difficulty handling secretions. 15:05 Respiratory: Negative for cough, shortness of breath, wheezing. 15:05 Abdomen/GI: Negative for abdominal pain, nausea, vomiting, and diarrhea. 15:05 Skin: Negative for rash. 15:05 All other systems are negative. Exam: 15:10 Constitutional: The patient appears in no acute distress, alert, awake, non-toxic, well cp developed, well nourished. 15:10 Head/Face: Normocephalic, atraumatic. cp 15:10 Eyes: Periorbital structures: appear normal, Pupils: equal, round, and reactive to light and accomodation, Extraocular movements: intact throughout, Conjunctiva: mild erythema of left conjunctiva. Corneas: abrasion, is not appreciated, foreign body, is not appreciated, a fluorescein strip employed to appreciate the findings, Lids and lashes: appear normal, bilaterally, Visual zacarias: are intact. 15:10 ENT: External ear(s): are unremarkable, Nose: is normal, Mouth: Lips: moist, Oral mucosa: pink and intact, moist, Posterior pharynx: Airway: no evidence of obstruction, patent. 15:10 Neck: ROM/movement: is normal, is supple, without pain, no range of motions limitations, Lymph nodes: no appreciated lymphadenopathy. 15:10 Chest/axilla: Inspection: normal. 15:10 Cardiovascular: Rate: normal. 15:10 Respiratory: the patient does not display signs of respiratory distress, Respirations: normal. 15:10 Skin: no rash present. 16:05 Visual Acuity: I have reviewed the nursing documentation. Vital Signs: 15:06 Pulse 67; Resp 15; Temp 97.7(TE); Pulse Ox 100% on R/A; Weight 90.72 kg; Height 5 ft. ss 10 in. (177.80 cm); Pain 1/10; 15:06 BP 129 / 93; ss 15:06 Body Mass Index 28.70 (90.72 kg, 177.80 cm) ss Visual Acuity: 15:56 Left Eye Visual acuity 20/200, Pupil size 5 mm, Normal, React To Light, Reactive To ld1 Accomodation; Right Eye Visual acuity 20/100, Pupil size 5 mm, Normal, React To Light, Reactive To Accomodation; Without Lenses; MDM: 15:20 Differential diagnosis: Corneal abrasion of both eyes. Foreign body in both eyes. cp Chemical conjunctivitis in. 15:38 Patient medically screened. 16:25 Data reviewed: vital signs, nurses notes. 16:25 Counseling: I had a detailed discussion with the patient and/or guardian regarding: the cp historical points, exam findings, and any diagnostic results supporting the discharge/admit diagnosis, to return to the emergency department if symptoms worsen or persist or if there are any questions or concerns that arise at home. 12/31 15:01 Order name: Eye Tray; Complete Time: 16:03 cp 12/31 15: Order name: Fluoresene Opth strip; Complete Time: 16:02 cp 12/31 15:01 Order name: Visual Acuity; Complete Time: 16:02 cp Administered Medications: 16:30 Drug: Tetracaine Drops 0.5 % 1 drops Route: Ophthalmic; Site: both eyes; eh3 Disposition: 01/01 11:14 Co-signature as Attending Physician, Joshua Jonas DO I was immediately available on-site ms3 in the Emergency Department for consultation in the care of the patient. . Disposition Summary: 12/31/21 16:25 Discharge Ordered Location: Home cp Problem: new cp Symptoms: have improved cp Condition: Stable cp Diagnosis - Other acute conjunctivitis - chemical, bilateral cp Followup: cp - With: Hay Barroso MD - When: 1 - 2 days - Reason: Worsening of condition Discharge Instructions: - Discharge Summary Sheet cp - Chemical Conjunctivitis, Adult cp Forms: - Medication Reconciliation Form cp - Thank You Letter cp - Antibiotic Education cp - Prescription Opioid Use cp Signatures: Rachna Marino RN RN J Luis Chan PA PA cp Joshua Jonas DO DO ms3 Deborah Reyes RN RN eh3 Corrections: (The following items were deleted from the chart) 12/31 16:26 16:25 Contact with and (suspected) exposure to hazardous, chiefly nonmedicinal, cp chemicals cp
[2021-12-31 18:24] VITALS: BP 129/93; TEMP 97.7; O2SAT 100
== END 2021-12-31 17:04 | disposition home or self-care (01) ==
LOC: ER 14:36
DX: H10.213 Acute toxic conjunctivitis, bilateral (principal)
CPT/HCPCS: 99283

== ENCOUNTER 2023-10-01 10:15 | Emergency (ER) | payer BC, SELFPAY ==
--- OUTSIDE RECORDS SUMMARY | 2023-10-01 10:19 | XMS REPORT | Continuity of Care Document ---
Author Name Unknown Address [address] [place] [address] [facility] Address [address] [place] [address] Care Team Providers Care Screening Unit Registered Nurse Name Role Phone CHRISTINA SHEETS Primary Care Physician Unavail able Juan Cat Attending Clinician Unavailable GC_GCBZW_Kadonitaa_S Attending Clinician Unavaila ble CHRISTINA SHEETS Attending Clinician UnavailChristina Russ Attending Clinician [phone] Juan Cat Admitting Clinician Unavailable BENNIE_GCBZW_Kadonitaa_S Admitting Clinician Unavaila ble Payers Payer Name Policy Type Policy Number Effective Date Expirati on Date Source [facility] [id number] 2022 00:00:00 Allergies, Adverse Reactions, Alerts Allergy Name Allergy Type Status Severity Reaction(s) Onset Date Inactive Date Treating Clinician Comments Source No Known Allergie s DA Active U 09-13 00:00: 00 [facility] [place] No Known Allergie s DA Active U 09-13 00:00: 00 [facility] BEE VENOM PROTEIN (HONEY BEE) DRUG INGREDI Active Swelling 3-13 00:00: 00 [facility] Bee Venom Protein (Honey Bee) Propensi ty to adverse reaction s Active Swelling 07-19 00:00: 00 [facility] Social History Social Habit Start Date Stop Date Quantity Comments Source History of tobacco use Cigarette Smoker [facility] Exposure to SARS-CoV-2 (event) 2022-08-30 00:00:00 2022-09-09 15:56:00 Not sure [facility] Alcohol intake 2022-09-09 00:00:00 2022-09-09 00:00:00 Current drinker of alcohol (finding) [facility] Tobacco Comment 2022-09-09 00:00:00 2022-09-09 00:00:00 smokes 3 x per day [facility] Alcohol Comment 2022-09-09 00:00:00 2022-09-09 00:00:00 social [facility] Tobacco use and exposure 2022-09-09 00:00:00 2022-09-09 00:00:00 Smokeless tobacco non-user [facility] Sex Assigned At 1985 00:00:00 1985 00:00:00 [facility] Smoking Status Start Date Stop Date Source Ex-smoker 2022-09-09 00:00:00 2022-09-09 00[facility]00[facility]00 [facility] Ordered Medication Name Filled Medication Name Start Date Stop Date Current Medication? Ordering Clinician Indication Dosage Frequency Signature (SIG) Comments Components Source phentermine 37.5 mg tablet 08-30 00:00: 00 Yes 37.5mg Take 1 tablet by mouth in the morning. [facility] proMETHazin e 25 mg tablet 07-19 00:00: 00 09-09 00:00 :00 No 25mg Take 1 tablet by mouth every 6 (six) hours as needed for Nausea and Vomiting (N/V). [facility] atenolol 25 mg tablet 07-19 00:00: 00 09-09 00:00 :00 No 25mg Take 1 tablet by mouth daily. [facility] vitamin w/FA (PRENATABS RX) tablet 11-10 00:00: 00 09-09 00:00 :00 No 1{tbl} Take 1 tablet by mouth daily. [facility] docusate calcium (SURFAK) 240 mg capsule 11-10 00:00: 00 09-09 00:00 :00 No 240mg Take 1 capsule by mouth once daily as needed for Constipati on. [facility] ferrous sulfate 325 mg (65 mg iron) tablet 11-10 00:00: 00 09-09 00:00 :00 No 325mg Take 1 tablet by mouth 2 (two) times daily. [facility] Vital Signs Vital Name Observation Time Observation Value Comments S júnior Systolic blood pressure 2022-09-09 20:57:00 136 mm[Hg] [facility] Diastolic blood pressure 2022-09-09 20:57:00 79 mm[Hg] [facility] Heart rate 2022-09-09 20:57:00 59 /min [facility] Body temperature 2022-09-09 20:57:00 36.44 Angie [facility] Respiratory rate 2022-09-09 20:57:00 17 /min [facility] Body height 2022-09-09 20:57:00 177.8 cm [facility] Body weight 2022-09-09 20:57:00 87.771 kg [facility] BMI 2022-09-09 20:57:00 27.76 kg/m2 [facility] Procedures Procedure Date / Time Performed Performing Clinicia n Source POCT TEST 2022-09-09 21:01:00 Alpesh Sheets [facility] [id number] 2019-09-17 00:00:00 [facility] [id number] 2019-09-17 00:00:00 [facility] [id number] 2019-09-17 00:00:00 [facility] Encounters Start Date/Time End Date/Time Encounter Type Admission Type Attending Clinicians Care Facility Care Department Encounter ID Source 2021-02-19 18:54:50 Outpatient [facility] [id number] [facility] 2019-09-17 04:31:00 Inpatient Juan Poe [facility] [id number] [facility] 2019-09-14 19:29:00 Inpatient Juan Cat [facility] LEROY [id number] [facility] 2023-03-06 00:00:00 2023-03-06 00:00:00 Outpatient GC_GCBZW_Ka diyala_S [facility] [id number] [facility] 2022-09-09 15:45:00 2022-09-09 16:44:58 Outpatient R CHRISTINA SHEETS [facility] [id number] [facility] 2022-09-09 15:45:00 2022-09-09 16:44:58 Office Visit Christina Sheets [facility] [employer] [facility] [id number] [facility] Results Test Description Test Time Test Comments Results Result Co mments Source [facility] [id number] 21:01:00* Test Item Value Reference Range Interpretation Comme nts POCT PREG (test code = 1605) Negative On board controls acceptable with C Line (test code = 3574) Yes POCT PREG LOT # (test code = 3575) POCT PREG TEST DATE ( test code = 3576) [facility] [id number] 08:23:00* Test Item Value Reference Range Interpretation Comme nts RUBELLA SCREEN (test code = RUBSC) 28.0 IUnit/ml Results >10.0IUn its/ml are considered positive inaccordance with the CLSI guidelines and based on the WHO International Standard for Anti-Rubella serum as anindicator of immune status and a breakpoint to detect mostseropositive persons. AG HEPATITIS B [id number] 08:06:00* Test Item Value Reference Range Interpretation Comme nts AG HEPATITIS B SURFACE (test code = HBSAG) NONREACTIVE NONREACTIVE Comments to Manager Of Purchasing: [id number] CONSENT FORM SIGNED FOR HIV TESTING? YAB HEPATITIS C [id number] 08:06:00* Test Item Value Reference Range Interpretation Comme nts AB HEPATITIS C (test code = HCVAB) NONREACTIVE NONREACTIVE SIGNAL TO CUTOFF (test code = CUTOFF) 0.14 <0.80 N Comments to Manager Of Purchasing: [id number] CONSENT FORM SIGNED FOR HIV TESTING? YAB [id number] 08:06:00* Test Item Value Reference Range Interpretation Comme nts AB TREPONEMA (test code = TREPAB) NONREACTIVE NONREACTIVE Comments to Manager Of Purchasing: [id number] CONSENT FORM SIGNED FOR HIV TESTING? YAB HIV 1 08:06:00* Test Item Value Reference Range Interpretation Comme nts AB HIV 1 2 (test code = FKK52ZJ) NONREACTIVE NONREACTIVE Done by [employer] HIV Ag/Ab Combo Screen Comments to Manager Of Purchasing: [id number] CONSENT FORM SIGNED FOR HIV TESTING? Y Coronavirus 2019 nCoV [id number] 07:56:00* Test Item Value Reference Range Interpretation Comme nts Coronavirus 2019 nCoV Bedside (test code = COVNONPUIBED) Negative Negative RESULTS CALLED Alfonzo GIANG BACK & CONFIRMED? COLTON AguirreLAB.ELB1 09/17/19 0756 This result does not rule out co-infections with otherpathogens. * False negative results may occur if a specimen isimproperly collected, transported or handled. False negativeresults may also occur if amplification inhibitors arepresent in the specimen or if inadequate levels of virusesare present in the specimen. * As with any molecular test, if the virus mutates in thetarget region, COVID-19 may not be detected or may bedetected less predictably.TEST PERFORMED UNDER AN EMERGENCY USE AUTHORIZATION FROM FDA AG HEPATITIS B [id number] 07:38:00* Test Item Value Reference Range Interpretation Comme nts AG HEPATITIS B SURFACE (test code = HBSAG) NONREACTIVE NONREACTIVE Comments to Manager Of Purchasing: [id number] CONSENT FORM SIGNED FOR HIV TESTING? YAB HEPATITIS C [id number] 07:38:00* Test Item Value Reference Range Interpretation Comme nts AB HEPATITIS C (test code = HCVAB) NONREACTIVE SIGNAL TO CUTOFF (test code = CUTOFF) <0.80 Comments to Manager Of Purchasing: [id number] CONSENT FORM SIGNED FOR HIV TESTING? YAB [id number] 07:38:00* Test Item Value Reference Range Interpretation Comme nts AB TREPONEMA (test code = TREPAB) NONREACTIVE NONREACTIVE Comments to Manager Of Purchasing: [id number] CONSENT FORM SIGNED FOR HIV TESTING? YAB HIV 1 07:38:00* Test Item Value Reference Range Interpretation Comme nts AB HIV 1 2 (test code = NZR16PK) NONREACTIVE Comments to Manager Of Purchasing: [id number] CONSENT FORM SIGNED FOR HIV TESTING? YCBC W/AUTO [id number] 06:47:00* Test Item Value Reference Range Interpretation Comme nts WHITE BLOOD CELL (test code = WBC) [...] pg 27-35 N MEAN CELL HGB CONCETRATION ( test code = MCHC) 33.9 gm/dL 32.2-34.1 N RED CELL DISTRIBUTION WIDTH (test code = RDW) 13.1 % 12.4-16.5 N PLATELET COUNT (test code = PLT) 186 K/mm3 133-385 N MEAN PLATELET VOLUME (test c ode = MPV) 11.8 fl 9.1-12.7 N NEUTROPHIL % (test code = NT%) 75.3 [...] = BA#) 0.0 K/mm3 RBC MORPHOLOGY REQUIRED (laura t code = RBCM) NORMAL NORMAL PLATELET MORPHOLOGY REQUIRED (test code = PLTMR) NORMAL NORMAL Notes Date/Time Note Provider Source 2019-09-18 08:58:00 [id number] fjM25BaUeT7A8uNYp17FlNnb/tf/w j27gj6jlNkf6PBwDe69WejLFOmA+wbZo571350-32-15D86:5 8:[id number] [facility] [address] PATIENT NAME: GABIB MCCOY ADMIT DATE: 09/17/19ACCOUNT NO: [id number] ROOM NO: [facility] AGE: 33 SEX: F ADMITTING PHYSICIAN: Juan Cat MD ATTENDING PHYSICIAN: Juan Cat MD ADMISSION DATE: 09/17/2019DISCHARGE DATE: 09/18/2019 01:00:00 ADMITTING DIAGNOSES: A 39 and 1/7th weeks' intrauterine , incompetentcervix, poor obstetrical history. DISCHARGE DIAGNOSES: A 39 and 1/7th weeks' intrauterine , incompetentcervix, poor obstetrical history. OPERATION: Vaginal delivery. BRIEF HISTORY: A 33-year-old 3, para 0, AB2, 39 and 1/7th weeks. Shehad a cerclage removed and was augmented. She also had gestationalhypertension. She delivered vaginally a large baby, 8.5 pounds vaginally, anddid well postoperatively in delivery, and is discharged home the following day. FOLLOWUP: To be followed up in the office in 6 weeks. DISCHARGE INSTRUCTIONS: Pelvic rest, regular diet. DISCHARGE MEDICATIONS: She is on Tylenol and Motrin as needed for pain. Dictated By: Juan Cat MD WT: DS:F.TAYLER/KAE/NTSDD: 09/18/2019 08:58:05DT: 09/18/2019 10:31:28Conf#: [id number]/DID#: [id number] Authenticated by Juan Cat MD On 09/19/2019 07:57:18 AM at 0757 PATIENT NAME: GABBI MCCOY fnyeudr0656-23-81Y23:31:00F.[id number] ilable for patient avpnZKQBETTKDDKFLW5779-95-27D07:57:56 [facility] 2019-09-18 08:54:00 [id number] Z8SjZNvu83KQNW89xWKvePBxIIRuO p0A9MlluFh/0jtAvHzFB59S1oCKkGeyr5r7518-30-35O01:5 4:00 [facility]OB Postpart Progr NoteREPORT#:[id number] REPORT STATUS: SignedDATE:09/18/19 TIME: 0854 PATIENT: GABBI MCCOY UNIT #: [id number]#: [id number] [address] [birth year] AGE: 33 SEX: F ATTEND: Juan Cat [facility] AUTHOR: Juan Cat MD * ALL edits or amendments must be made on the electronic/computer document * Subjective SubjectivePatient reports: Patient reports: Yes normal lochia, Yes pain management effective, Yes tolerating po well, Yesvoiding well Objective Physical ExamAbdomen: soft, no abnormal tenderness, no guarding, no rebound tendernessUterus: firm, involution appropriate, non-tenderFundus: at the umbilicusLower extremities: Edema: 1+ pitting Eric's sign: negative Calf tenderness: negative ResultFindings/Data:Vital Signs: Date Time Temp Pulse Resp B/P B/P Pulse O2 O2 Flow FiO2 Mean Ox Delivery Rate 09/17 40 98.5 77 20 132/82 09/16 2099 68 20 130/77 09/16 2048 99.0 09/16 2048 76 131/82 09/17 2039 96.0 09/17 2039 70 126/78 09/17 2023 86.0 09/17 2023 65 118/68 05/11 1955 94.0 05/11 1955 69 129/71 05/11 1941 86.0 05/11 1941 78 127/70 05/11 1926 96.0 05/11 1926 85 18 150/67 05/11 1911 89.0 05/11 1911 77 149/62 05/11 1855 92.0 05/11 1855 82 142/59 05/11 1841 98.0 05/11 1841 83 144/68 05/11 1826 89.0 05/11 1826 95 122/72 05/11 1811 96.0 05/11 1811 83 140/67 05/11 1756 76.0 05/11 1756 76 120/53 05/11 1742 89.0 05/11 1742 71 143/62 05/11 1735 98.6 18 05/11 1726 88.0 05/11 1726 70 155/61 05/11 1657 106.0 05/11 1657 67 158/74 05/11 1643 104.0 05/11 1643 81 134/84 05/11 1627 101.0 05/11 1627 68 133/79 05/11 1611 105.0 05/11 1611 71 140/81 05/11 1555 104.0 05/11 1555 71 134/83 05/11 1540 100.0 05/11 1540 70 128/83 05/11 1527 103.0 05/11 1527 69 131/84 05/11 1512 105.0 05/11 1512 80 133/87 05/11 1457 98.0 05/11 1457 72 137/77 05/11 1441 100.0 05/11 1441 73 144/71 05/11 1427 98.0 05/11 1427 69 134/71 05/11 1411 108.0 05/11 1411 76 146/81 05/11 1356 103.0 05/11 1356 82 138/80 05/11 1342 105.0 05/11 1342 75 137/83 05/11 1328 93.0 05/11 1328 75 125/72 05/11 1325 92.0 05/11 1325 74 122/71 05/11 1311 88.0 05/11 1311 69 120/67 05/11 1255 80.0 05/11 1255 72 110/61 05/11 1241 77.0 09/16 1241 73 102/58 09/16 1226 89.0 09/16 1226 71 119/69 09/16 1211 77.0 09/16 1211 75 111/55 09/16 1155 79.0 09/16 1155 75 112/55 09/16 1150 82.0 09/16 1150 80 118/59 09/16 1145 78.0 09/16 1145 75 110/56 09/16 1141 84.0 09/16 1141 79 118/61 09/16 1139 98.1 09/16 1135 82.0 09/16 1135 78 116/59 09/16 1130 78.0 09/16 1130 80 107/59 09/16 1122 110.0 09/16 1122 80 140/88 09/16 0901 98.1 19 Diagnosis, Assessment Plan Diagnosis, Assessment PlanAssessment: nml progressPlan: discharge today at 0855 [facility] #:[id number] OF REPORT PRProgress Mljl8981-99-50M48:54:00F.SZSL72440794-0549BSFzyvi able for patient vobuPYUNHGCYEOPNAU6650-95-92J01:56:02 [facility] 2019-09-17 18:45:00 [id number] 2jGezCGg4FX/4Ls4L7pr4AjrJgwsH keTK8oIkRHdOqPlcEXdTxpl6w2nwqmBIkQ1980-58-87K02:4 5:[id number] [facility] [place] [address] PATIENT NAME: GABBI MCCOY ADMIT DATE: 09/17/19ACCOUNT NO: [id number] ROOM NO: 4410 AGE: 33 SEX: F ADMITTING PHYSICIAN: Juan Cat MD ATTENDING PHYSICIAN: Juan Cat MD OPERATION DATE: 09/17/2019 PREOPERATIVE DIAGNOSES: A 39 and 1/7th weeks' intrauterine , poorobstetrical history, incompetent cervix and gestational hypertension. POSTOPERATIVE DIAGNOSES: A 39 and 1/7th weeks' intrauterine , poorobstetrical history, incompetent cervix and gestational hypertension. OPERATION: Vaginal delivery. SURGEON: Juan Cat MD. GRINDER NEEDLE TIP: ANESTHESIA: Epidural. ESTIMATED BLOOD LOSS: 200 mL. BRIEF HISTORY: A 33-year-old 3 with no living children, who had acerclage placed in the last two previous 20-week losses leading up todelivery with removal of cerclage and had elevation ____ her GBS was negativeand reactive tracing throughout labor. She did ____, but reassuring fetalstatus and was ready for delivery. PROCEDURE NOTE: The head was delivered over an intact perineum. Mouth andnares were suctioned. The shoulders were then easily delivered. The 8 and 9Apgar male infant was delivered. There was a 3-vessel cord. Dad cut the cord. Cord blood was collected for MD [place] stem cells. The placenta deliveredshortly thereafter spontaneously intact. The cervix was intact. She hadsuperficial first-degree vaginal tears bilaterally in the vagina that were notbleeding and that did not require suturing. She had a firm uterus with stablevital signs with no bleeding of note and will be recovered in the labor anddelivery suite prior to being transferred to the floor. Dictated By: Juan Cat MD WT: OP:F.TAYLER/KAE/NTSDD: 09/17/2019 18:45:31DT: 09/17/2019 18:57:00Conf#: [id number]/DID#: [id number] PATIENT NAME: GABBI MCCOY Authenticated by Juan Cat MD On 09/19/2019 07:57:16 AM at 0757 PATIENT NAME: GABBI MCCOY loxfkw1628-70-38N38:57:00F.[id number] lable for patient gkwlACLHWMFFHZTBFI4561-06-18D56:57:56 [facility] 2019-09-17 09:00:00 [id number] Azl64JyQNkCzbx/EnJm3dwBYhJfvo jv+vaAXaG6ySBa8Ke3uVgM51w7SKd23mZ24060-41-70R35:0 0:00 [facility]OB Admission / H PREPORT#:[id number] REPORT STATUS: SignedDATE:09/17/19 TIME: 0900 PATIENT: GABBI MCCOY UNIT #: [id number]#: [id number] [facility] AGE: 33 SEX: F ATTEND: Juan Cat MDA AUTHOR: Juan Cat MD * ALL edits or amendments must be made on the electronic/computer document * OB Admission H P HxChief complaint: scheduled inductionHPI:33 y/o g3 po 39 1/7 weeksinc cx cerclaged removed 2 weeks previoslyPregnancy history: : 3 Term: 0 : 0 Abortus: 2 Previous : noneCurrent : Admission EGA (wks/days): 39 weeks (1 day)Past medical history: denies PMHPast surgical history: handAllergiesCoded Allergies:No Known Allergies (09/14/19) Objective Physical ExamHEENT: normocephalic w/o injury, pupils equal, pupils reactive to light, no apparent hearing diff, no lesions of mouth, no lesions of throat, no nasal septum deviationLungs: clear to auscultation, no rales, no rhonchiAbdomen: gravid, soft, no abnormal tenderness, no guarding, no rebound tendernessPelvic exam: Pelvis clinically adequate: yesCervical/ exam: Dilatation (cm): 3 Effacement (%): 70 station: - 2 presentation: cephalicMembranes: Membranes: AROM (bloody scalp electrode applied)Lower extremities: Edema: 1+ pitting Eric's sign: negativeBaby A: Baby A FHR category: category 1 Diagnosis, Assessment Plan Diagnosis, Assessment PlanFree Text A P:39 1/7 weekspoor ob hxinc cxPlan: induction of labor at 0903 RPT #:[id number] OF REPORT HPHistory and physical azcowhtrvot2705-72-08G85:00:00F.[id number] AVAvailable for patient tubbRRDFKLSXYPHFYQ3994-92-30U95:04:07 [facility] 2019-09-16 04:40:00 [id number] GK7D95/pgJGugdLnS/KRyQfpNQ7fR htehTU1F2HxNVtcTzO4A45GVITUhzQk3MW7719-09-11P78:4 0:[id number] [facility] [place] [id number] [place] [address] PATIENT NAME: GABBI MCCOY ADMIT DATE: 09/14/19ACCOUNT NO: [id number] ROOM NO: AGE: 33 SEX: F ADMITTING PHYSICIAN: ATTENDING PHYSICIAN: Juan Cat MD TRIAGE EVALUATION: 09/14/2019 Patient seen for evaluation in OB ED on 09/14/2019, by Aurora Humphrey MD, triage hospitalist, per request of Dr. Goldberg, on-call for Dr. Cat. HISTORY OF PRESENT ILLNESS: The patient is a 33-year-old G3, P0-0-2-0, withunsure last menstrual period, and estimated date of confinement 09/23/2019. Shepresented at 38-5/7th weeks, complaining of a moderate amount of bleedingfollowing a stripping of membranes in clinic by Dr. Cat on day prior. Sheis scheduled for induction on the . She denied leakage of fluid. Shedenied contractions at the time of evaluation, although she stated that soonafter the stripping of membranes, she did have some cramping. She reported goodfetal movement. She also reported a mild headache, 4/10 on the pain scale,frontal in location earlier in the day. She states that she has had someoccasional elevated blood pressures in clinic the last few visits, but herpressure is normal today. She states she has not had any protein in the urineon testing in clinic. She denies scotomata or other preeclampsia symptoms. Shereports some nausea and vomiting on day prior as well as chronic constipation.She denies fever, chills, diarrhea, or dysuria. She denies recent travel forherself or her contacts. She denies sore throat, cough, shortness of breath,fevers, diarrhea, loss of taste or smell or other symptoms consistent withCOVID. She denies contact with anyone known to be COVID positive. [facility] and has been observing the stay at home and socialdistancing recommendations. Her care began with Dr. Emory nunoly 8 weeks' gestation due to her history of incompetent cervix. Shewas on progesterone from 24 until 37 weeks and had a cerclage placed at 14weeks. This was removed at 36 weeks. She otherwise denies complications duringthe and reports all labs and ultrasounds normal. PAST MEDICAL HISTORY: Negative. PAST SURGICAL HISTORY: Possible D and C in first miscarriage, also placement ofcerclage earlier in the current . ALLERGIES: NO KNOWN DRUG ALLERGIES. MEDICATIONS: vitamins and until 3 weeks ago progesterone nightly. OBSTETRICAL HISTORY: In 2009, spontaneous at 20 weeks requiring D andC. In 2016, spontaneous again at 20 weeks, no D and C reported. GYNECOLOGIC HISTORY: Menarche at age 13 with regular monthly cycles lasting 7days, moderate in amount with minimal cramping. The patient denies prior PATIENT NAME: GABBI MCCOY history of STDs and reports all Pap smears normal. SOCIAL HISTORY: One-half pack per day tobacco use for approximately 18 years,she quit in 2016. Also, occasional prepregnancy alcohol use. No illicit drugs. The patient lives with her fiance. 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 FAMILY HISTORY: Mother without health problems. Father with AK. Healso had heart disease and hypertension. Maternal grandmother withdiabetes. Maternal grandfather with melanoma. Paternal grandmotherwith history of CVA. She has hypertension. Paternal grandfather withAlzheimer's and Parkinson's. Brother with diabetes, hypertension, and obesity.Her other brother is reported as healthy. The patient denies history of mentalretardation or defects in her family or her partner's family. REVIEW OF SYSTEMS: A 10-point review of systems is negative except as statedabove. PHYSICAL EXAMINATION:GENERAL: The patient is a well-nourished, well-developed white female, lying ontriage stretcher in OB ED.VITAL SIGNS: Height 5 feet 10 inches, weight prior to the 180 poundsand at most recent visit to clinic 260 pounds. Please see nursing notes for theremainder of the vitals. As stated above, her blood pressures were alldocumented within normal limits.HEAD AND NECK: Within normal limits without lymphadenopathy or thyromegaly.CHEST: Clear to auscultation bilaterally.HEART: With regular rate and rhythm.BREASTS: Deferred.ABDOMEN: Soft, nontender, gravid with a fundal height of 39 cm.PELVIC: A 2-cm dilated, 50% effaced, -4 station, cephalic. This is the same yolanda exam in Dr. Cat's office at the time of membrane stripping. Repeat examan hour later, no change. Initially by RN exam on arrival, there was a moderateamount of brown blood on the glove. On my exam after an hour, onlycoffee-ground looking material. No evidence of active bleeding. She was alsonoted to have some dry blood on her inner thighs and perineum.EXTREMITIES: Without edema. Bilateral patellar reflexes 2+.NEUROLOGIC: Nonfocal. The patient is awake, alert, and oriented x3. ASSESSMENT AND PLAN: This is a 33-year-old G3, P0-0-2-0 at 38-5/7th weeks withhistory of incompetent cervix, status post cerclage removal at 36 weeks, nowpresenting with vaginal bleeding following membrane stripping in clinic on prior. The patient is now discharged home in stable condition with reassuringfetal status. No evidence of abruption. She is to follow up for induction onthe as scheduled. She is to drink greater than 100 ounces of water dailyand eat frequent small meals. She is to call or return for increased vaginalbleeding, decreased movement, for leakage of fluid or contractions withincreased force and frequency. All precautions given verbally by afterquestions answered. Dictated By: Aurora Humphrey MD WT: HP:F.TAYLER/LORNA/NTSDD: 09/16/2019 04:40:44DT: 09/16/2019 06:27:28 PATIENT NAME: GABBI MCCOY Conf#: [id number]/DID#: [id number] and Edited by Aurora Humphrey MD On 09/29/19 9:38:02 PM at 2140 PATIENT NAME: GABBI MCCOY and physical [id number] VAvailable for patient [id number] [facility]
[2023-10-01] MEDS ORDERED: AZITHROMYCIN 250 MG TAB ONE (10:26)
[2023-10-01 10:54] LABS: SARS-CoV-2 Antigen CONTROL BLUE LINE VIS/BG OK; SARS-CoV-2 Antigen Rapid Res Negative (Negative)
[2023-10-01] MEDS ORDERED: dexAMETHasone 10 MG/ML VIAL ONE (11:15)
[2023-10-01] MEDS ORDERED: LIDOCAINE 1% MPF 5 ML VIAL ONE (11:15)
[2023-10-01] MEDS ORDERED: CEFTRIAXONE 1000 MG/VIAL ONE (11:15)
--- NOTE | 2023-10-01 11:20 | EDPHYS ---
Physician Documentation [facility] Name: Shelley Saul Age: 37 yrs Sex: Female : 1985 Arrival Date: 10/01/2023 Time: 10:15 Bed 12 Private MD: ED Physician J Luis Ohara HPI: 09/30 11:12 This 37 yrs old Female presents to ER via Ambulatory with complaints of Flu melba Symptoms. 11:12 The patient presents with sore throat. The patient describes throat pain as constant, melba raw. Onset: The symptoms/episode began/occurred 2 day(s) ago. Severity of symptoms: At their worst the symptoms were moderate, in the emergency department the symptoms are unchanged. Modifying factors: The symptoms are alleviated by nothing, the symptoms are aggravated by foods, swallowing, Patient's oral intake status: good. Associated signs and symptoms: Pertinent positives: chills, cough, fever, Sore throat. The patient has experienced similar episodes in the past, a few times. Historical: - Allergies: 10:22 No Known Allergies; aa5 - PMHx: 10: None; aa5 - PSHx: 10:23 None; aa5 - Immunization history:: Adult Immunizations up to date. - Infectious Disease History:: Denies. - Social history:: Smoking status: Patient denies any tobacco usage or history of. ROS: 11:13 Constitutional: Negative for fever, chills, and weight loss, Eyes: Negative for injury, melba pain, redness, and discharge, Neck: Negative for injury, pain, and swelling, Cardiovascular: Negative for chest pain, palpitations, and edema, Respiratory: Negative for shortness of breath, cough, wheezing, and pleuritic chest pain, Abdomen/GI: Negative for abdominal pain, nausea, vomiting, diarrhea, and constipation, Back: Negative for injury and pain, : Negative for injury, bleeding, discharge, and swelling, MS/Extremity: Negative for injury and deformity, Skin: Negative for injury, rash, and discoloration, Neuro: Negative for headache, weakness, numbness, tingling, and seizure, Psych: Negative for depression, anxiety, suicide ideation, homicidal ideation, and hallucinations, Allergy/Immunology: Negative for hives, rash, and allergies, Endocrine: Negative for neck swelling, polydipsia, polyuria, polyphagia, and marked weight changes, Hematologic/Lymphatic: Negative for swollen nodes, abnormal bleeding, and unusual bruising, 11:13 ENT: Positive for rhinorrhea, sinus congestion, sore throat, Exam: 11:15 Constitutional: This is a well developed, well nourished patient who is awake, alert, melba and in no acute distress. Head/Face: Normocephalic, atraumatic. Eyes: Pupils equal round and reactive to light, extra-ocular motions intact. Lids and lashes normal. Conjunctiva and sclera are non-icteric and not injected. Cornea within normal limits. Periorbital areas with no swelling, redness, or edema. Neck: Trachea midline, no thyromegaly or masses palpated, and no cervical lymphadenopathy. Supple, full range of motion without nuchal rigidity, or vertebral point tenderness. No Meningismus. Chest/axilla: Normal chest wall appearance and motion. Nontender with no deformity. No lesions are appreciated. Cardiovascular: Regular rate and rhythm with a normal S1 and S2. No gallops, murmurs, or rubs. Normal PMI, no JVD. No pulse deficits. Respiratory: Lungs have equal breath sounds bilaterally, clear to auscultation and percussion. No rales, rhonchi or wheezes noted. No increased work of breathing, no retractions or nasal flaring. Abdomen/GI: Soft, non-tender, with normal bowel sounds. No distension or tympany. No guarding or rebound. No evidence of tenderness throughout. Back: No spinal tenderness. No costovertebral tenderness. Full range of motion. Skin: Warm, dry with normal turgor. Normal color with no rashes, no lesions, and no evidence of cellulitis. MS/ Extremity: Pulses equal, no cyanosis. Neurovascular intact. Full, normal range of motion. Neuro: Awake and alert, GCS 15, oriented to person, place, time, and situation. Cranial nerves II-XII grossly intact. Motor strength 5/5 in all extremities. Sensory grossly intact. Cerebellar exam normal. Normal gait. Psych: Awake, alert, with orientation to person, place and time. Behavior, mood, and affect are within normal limits. 11:15 ENT: Posterior pharynx: Tonsils: bilaterally enlarged, with erythema, Uvula: midline, swelling, that is mild, erythema, that is moderate, peritonsillar mass, is not appreciated, pooling of secretions, is not appreciated, Vital Signs: 10:22 BP 135 / 99; Pulse 85; Resp 19 S; Temp 98(TE); Pulse Ox 100% on R/A; Weight 95.25 kg aa5 (R); Height 5 ft. 10 in. (R); 10:22 Body Mass Index 30.13 (95.25 kg, 177.8 cm) aa5 MDM: 10:18 Patient medically screened. [facility] 11:16 Differential diagnosis: influenza, laryngitis, peritonsillar abscess chlamydia melba pharyngitis, pharyngitis, tonsillitis, upper respiratory infection, uvulitis, viral syndrome. Data reviewed: vital signs, nurses notes, lab test result(s), Flu: negative. Consideration of Admission/Observation Escalation of care including admission/observation considered. I considered the following discharge prescriptions or medication management in the emergency department Medications were administered in the Emergency Department. See MAR. Test considered but Not performed: Labs: no cbc , no comp met. Historians other than the Patient: pt well informed. Care significantly affected by the following chronic conditions: none. Counseling: I had a detailed discussion with the patient and/or guardian regarding the historical points, exam findings, and any diagnostic results supporting the discharge/admit diagnosis, lab results, the need for outpatient follow up, for definitive care, a family practitioner. 09/30 10:19 Order name: Flu; Complete Time: 11:11 [facility] 09/30 10:19 Order name: SARS RAPID; Complete Time: 11:07 [facility] 09/30 10:19 Order name: Strep; Complete Time: 11:07 [facility] Administered Medications: 10:34 Drug: AZITHromycin PO 500 mg PO once Route: PO; aa5 11:25 Follow up: Response: No adverse reaction aa5 11:25 Drug: Rocephin (cefTRIAXone) IM 1 grams IM once Route: IM; Site: left gluteus; aa5 11:25 Drug: Dexamethasone IM 10 mg IM once Route: IM; Site: right gluteus; aa5 Disposition Summary: 10/01/23 11:19 Discharge Ordered Notes: Location: Home [facility] Problem: new melba Symptoms: have improved melba Condition: Stable melba Diagnosis - Streptococcal tonsillitis melba - Acute streptococcal tonsillitis, unspecified melba Followup: melba - With: Private Physician - When: 2 - 3 days - Reason: Recheck today's complaints, Continuance of care, Re-evaluation by your physician Discharge Instructions: - Discharge Summary Sheet melba - Strep Throat, Adult melba - Tonsillitis melba - Upper Respiratory Infection, Adult melba - Tonsillitis, [id number] melba - Strep Throat, Adult, [id number] melba Forms: - Medication Reconciliation Form melba - Antibiotic Education melba - Prescription Opioid Use melba - Patient Portal Instructions [facility] - Leadership Thank You Letter [facility] Prescriptions: - Medrol (Paulino) 4 mg Oral Tablets, Dose Pack - take 1 tablet ORAL route as directed - follow package instructions; 1 packet; melba Refills: 0, Product Selection Permitted - Zithromax 500 mg Oral tablet - take 1 tablet ORAL route once daily for 5 days; 5 tablet; Refills: 0, Product [facility] Selection Permitted Signatures: Dispatcher [employer] J Luis Weston MD MD cha Calderon, Audri, RN RN aa5 Corrections: (The following items were deleted from the chart) 10:24 10:23 PSHx: Unable to Obtain; aa5 aa5
--- NOTE | 2023-10-01 11:20 | ER ---
Nurse's Notes [facility] Name: Shelley Saul Age: 37 yrs Sex: Female : 1985 Arrival Date: 10/01/2023 Time: 10:15 Bed 12 Private MD: Diagnosis: Streptococcal tonsillitis;Acute streptococcal tonsillitis, unspecified Presentation: 09/30 10:22 Chief complaint: Patient states: sinus and nasal congestion. Coronavirus screen: aa5 congestion. Ebola Screen: Patient denies travel to an Ebola-affected area in the 21 days before illness onset. Initial Sepsis Screen: Does the patient meet any 2 criteria? No. Patient's initial sepsis screen is negative. Does the patient have a suspected source of infection? No. Patient's initial sepsis screen is negative. Risk Assessment: Do you want to hurt yourself or someone else? Patient reports no desire to harm self or others. Onset of symptoms was September 2023. 10:22 Acuity: TEVIN 4 aa5 10:22 Method Of Arrival: Ambulatory aa5 Historical: - Allergies: 10:22 No Known Allergies; aa5 - PMHx: 10:23 None; aa5 - PSHx: 10:23 None; aa5 - Immunization history:: Adult Immunizations up to date. - Infectious Disease History:: Denies. - Social history:: Smoking status: Patient denies any tobacco usage or history of. Screenin:25 [facility] ED Fall Risk Assessment (Adult) History of falling in the last 3 months, aa5 including since admission No falls in past 3 months (0 pts) Confusion or Disorientation No (0 pts) Intoxicated or Sedated No (0 pts) Impaired Gait No (0 pts) Mobility Assist Device Used No (0 pt) Altered Elimination No (0 pt) Score/Fall Risk Level 0 - 2 = Low Risk Oriented to surroundings, Maintained a safe environment, Educated pt \T\ family on fall prevention, incl call for assistance when getting out of bed. Abuse screen: Denies threats or abuse. Nutritional screening: No deficits noted. Tuberculosis screening: No symptoms or risk factors identified. Assessment: 10:25 General: Appears uncomfortable, Behavior is calm, cooperative. Pain: Complains of pain aa5 in face and teeth Quality of pain is described as pressure. Neuro: Level of Consciousness is awake, alert, obeys commands, Oriented to person, place, time, situation. Cardiovascular: Patient's skin is warm and dry. Respiratory: Airway is patent Respiratory effort is even, unlabored, Respiratory pattern is regular, symmetrical. GI: No signs and/or symptoms were reported involving the gastrointestinal system. : No signs and/or symptoms were reported regarding the genitourinary system. EENT: Reports nasal congestion sinus congestion. Derm: Skin is pink, warm \T\ dry. Musculoskeletal: Range of motion: intact in all extremities. 11:00 Reassessment: Patient is alert, oriented x 3, equal unlabored respirations, skin aa5 warm/dry/pink. Pt requesting pain medication, was notified. . 11:45 Reassessment: Patient appears in no apparent distress at this time. Patient and/or hb family updated on plan of care and expected duration. Pain level reassessed. Patient is alert, oriented x 3, equal unlabored respirations, skin warm/dry/pink. Vital Signs: 10:22 BP 135 / 99; Pulse 85; Resp 19 S; Temp 98(TE); Pulse Ox 100% on R/A; Weight 95.25 kg aa5 (R); Height 5 ft. 10 in. (R); 10:22 Body Mass Index 30.13 (95.25 kg, 177.8 cm) aa5 ED Course: 10:17 Patient arrived in ED. ts1 10:18 J Luis Ohara MD is Attending Physician. melba 10:21 Arm band placed on. aa5 10:21 Patient has correct armband on for positive identification. aa5 10:22 Triage completed. aa5 11:11 Cecilia Anderson, REYNA is Primary Nurse. aa5 11:40 No provider procedures requiring assistance completed. Patient did not have IV access hb during this emergency room visit. Administered Medications: 10:34 Drug: AZITHromycin PO 500 mg PO once Route: PO; aa5 11:25 Follow up: Response: No adverse reaction aa5 11:25 Drug: Rocephin (cefTRIAXone) IM 1 grams IM once Route: IM; Site: left gluteus; aa5 11:25 Drug: Dexamethasone IM 10 mg IM once Route: IM; Site: right gluteus; aa5 Medication: 11:12 VIS not applicable for this client. aa5 Outcome: 11:19 Discharge ordered by . melba 11:44 Patient left the ED. hb 11:44 Discharged to home ambulatory, with family, hb 11:44 Condition: stable 11:44 Discharge instructions given to patient, Instructed on discharge instructions, follow up and referral plans. medication usage, Demonstrated understanding of instructions, follow-up care, medications, Prescriptions given X 2, Signatures: J Luis Ohara MD MD cha Calderon, Audri RN RN aa5 Ankita Maldonado RN RN hb Simpson, Tanya, PAS PAS ts1 Corrections: (The following items were deleted from the chart) 10:24 10:23 PSHx: Unable to Obtain; porsche aa5
[2023-10-01 11:52] VITALS: BP 135/99; TEMP 98; O2SAT 100
== END 2023-10-01 11:44 | disposition home or self-care (01) ==
LOC: ER 10:15
DX: J03.00 Acute streptococcal tonsillitis, unspecified (principal); Z11.52 Encounter for screening for COVID-19
CPT/HCPCS: 36415; 87081; 87804; 87811; 96372; 99284; J0696; J1100; J2001